=== PATIENT | male | born 1965 | race Two or more races ===

== ENCOUNTER 2022-10-27 14:38 | Emergency (ER) | payer MEDICAID ==
[~2022-10-27] VITALS: Ht 188 cm; Wt 98.9 kg
[2022-10-27 14:49] VITALS: BP 143/84
[2022-10-27] MEDS ORDERED: CEPHALEXIN MONOHYDRATE 500 MG CAPSULE PO ONE ×2 (15:28→15:30)
[2022-10-27] MEDS ORDERED: IBUPROFEN 400 MG TABLET ONE (15:29)
[2022-10-27] MEDS ORDERED: IBUPROFEN 400 MG TABLET PO ONE (15:30)
[2022-10-27] MEDS ORDERED: CEPH500T PO (15:57)
--- NOTE | 2022-10-27 17:00 | NUR ---
Patient discharged to home in stable condition. Written and verbal after care instructions given. Patient verbalizes understanding of instruction.
== END 2022-10-27 18:29 | disposition home or self-care (01) ==
LOC: ER 14:52
DX: M70.22 Olecranon bursitis, left elbow (principal); I10 Essential (primary) hypertension; Y93.89 Activity, other specified
CPT/HCPCS: 73080-TC